=== PATIENT | female | born 1950 | race Caucasian/White ===

== ENCOUNTER 2017-03-06 22:06 | Emergency (ER) | payer MEDICARE, BC ==
[2017-03-06] MEDS ORDERED: CALCIUM500 M1 (22:21)
[2017-03-06] MEDS ORDERED: ASPIRIN81 MG (22:21)
[2017-03-06] MEDS ORDERED: [UNRECOGNIZED DRUG - OTHER] (22:22)
== END 2017-03-06 23:15 | disposition home or self-care (01) ==
LOC: SED 22:06
DX: S01.81XA Laceration without foreign body of other part of head, initial encounter (principal); W01.0XXA Fall on same level from slipping, tripping and stumbling without subsequent striking against object, initial encounter; Y92.009 Unspecified place in unspecified non-institutional (private) residence as the place of occurrence of the external cause
CPT/HCPCS: 12011; 90471; 90715; 99283

== ENCOUNTER → 2017-06-15 | Outpatient (CLI) | payer MEDICARE, BC ==
[~2017-06-15] MED LIST: ASPIRIN81 MG; CALCIUM500 M1; [UNRECOGNIZED DRUG - OTHER]
--- NOTE | ~2017-06-15 | EKG ---
PATIENT: GERSON MENA UNIT #: [id number] Ventricular Rate: 64 BPM Atrial Rate: 64 BPM P-R Interval: 148 ms QRS Duration: 80 ms Q-T Interval: 406 ms QTC Calculation(Bezet): 418 ms P [place]: 38 degrees Calculated R [place]: 31 degrees Calculated T [place]: 47 degrees Diagnosis Line: Normal sinus rhythm Diagnosis Line: Low voltage QRS Diagnosis Line: Borderline ECG Diagnosis Line: When compared with ECG of 19-APR-2016 08:50, Diagnosis Line: No significant change was found Diagnosis Line: Confirmed by SIMRAN SENA MD ([id number]) on Diagnosis Line: 06/16/2017 11:30:36 AM INTERPRETING MD: JAIDA PIERRE
[2017-06-15 09:40] LABS: HEMATOCRIT 40.7 % (35.0-45.0); HEMOGLOBIN 13.4 gm/dL (12.0-16.0); MEAN CELL VOLUME 92.7 FL (83-96); MEAN CORPUSCULAR HEMOGLOBIN 30.5 PG (28-34); MEAN CORPUSCULAR HGB CONC 32.9 g/dL (30-36); MEAN PLATELET VOLUME 7.2 FL (6.5-11.5); RED BLOOD COUNT 4.39 X10e (3.90-5.30); RED CELL DISTRIBUTION WIDTH 13.7 % (11.0-15.5); WHITE BLOOD COUNT 4.4 X10e3 (4.0-10.5)
[2017-06-15 10:42] LABS: ALBUMIN SERUM 4.3 g/dL (3.5-5.0); BILIRUBIN,TOTAL 0.6 mg/dL (0.2-2.0); BUN/CREATININE RATIO 28.33; CREATININE SERUM 0.6 mg/dL (0.6-1.4); POTASSIUM 4.9 mmol/L (3.5-5.1); PROTEIN TOTAL SERUM 6.5 g/dL (6.0-8.3)
== END | disposition home or self-care (01) ==
LOC: SEKG 08:40 → SLAB 08:40
PROVIDERS: Internal Medicine
DX: I10 Essential (primary) hypertension (principal); E78.5 Hyperlipidemia, unspecified; Z80.0 Family history of malignant neoplasm of digestive organs
CPT/HCPCS: 36415; 80053; 80061; 82378; 84443; 85027; 93005